=== PATIENT | male | born 1995 | race Two or more races ===

== ENCOUNTER → 2017-09-30 | Emergency (ER) | payer OTHER ==
[~2017-09-30] VITALS: Ht 177.8 cm; Wt 66.2 kg
[~2017-09-30] MED LIST: INTESTINEX680 M1 PO; LEVSIN/SL0.125 MG SL; ZOFRAN ODT4 MG PO
== END | disposition home or self-care (01) ==
LOC: ER 17:26
DX: K52.9 Noninfective gastroenteritis and colitis, unspecified (principal); R10.31 Right lower quadrant pain

== ENCOUNTER 2017-10-12 18:39 | Emergency (ER) | payer OTHER ==
[~2017-10-12] VITALS: Ht 185.4 cm; Wt 88.5 kg
== END 2017-10-12 23:46 | disposition home or self-care (01) ==
LOC: ER 18:39
DX: M94.0 Chondrocostal junction syndrome [Tietze] (principal); F06.4 Anxiety disorder due to known physiological condition

== ENCOUNTER 2017-11-08 16:44 | Emergency (ER) | payer OTHER ==
[~2017-11-08] VITALS: Ht 185.4 cm; Wt 88.5 kg
== END 2017-11-08 18:32 | disposition home or self-care (01) ==
LOC: ER 16:44
DX: R51 Headache (principal); M79.2 Neuralgia and neuritis, unspecified

== ENCOUNTER 2017-12-31 17:14 | Emergency (ER) | payer OTHER ==
[~2017-12-31] VITALS: Ht 185.4 cm; Wt 87.5 kg
== END 2017-12-31 23:27 | disposition home or self-care (01) ==
LOC: ER 17:14
DX: R19.5 Other fecal abnormalities (principal); R10.84 Generalized abdominal pain

== ENCOUNTER 2018-02-04 16:00 | Emergency (ER) | payer OTHER ==
[~2018-02-04] VITALS: Ht 185.4 cm; Wt 86.2 kg
== END 2018-02-04 18:13 | disposition home or self-care (01) ==
LOC: ER 16:00
DX: K29.70 Gastritis, unspecified, without bleeding (principal)

== ENCOUNTER 2018-02-15 21:56 | Inpatient (IN) | payer OTHER ==
[~2018-02-15] VITALS: Ht 185.4 cm; Wt 88.9 kg
[2018-02-21] MEDS ORDERED: OMEPRAZOLE20 M1 PO (08:58)
[2018-02-21] MEDS ORDERED: TRAMADOL HCL50 MG PO (08:58)
[2018-02-22] MEDS ORDERED: OMEPRAZOLE20 MG PO (10:23)
[2018-02-22] MEDS ORDERED: INTESTINEX680 M1 PO (10:23)
[2018-02-22] MEDS ORDERED: METRONIDAZOLE500 MG PO (10:23)
[2018-02-22] MEDS ORDERED: CIPRO500 MG PO (10:23)
[2018-02-22] MEDS ORDERED: ONDANSETRON ODT4 MG PO (10:50)
== END 2018-02-21 13:56 | disposition home or self-care (01) | DRG 417 ==
LOC: ER 21:56 → MEDI 02-16 08:24 → SEC-K 02-16 08:24 → MEDI 02-16 12:54
PROVIDERS: Surgery
PROC: 4A033R1 Measurement of Arterial Saturation, Peripheral, Percutaneous Approach (ICD-10-PCS; 2018-02-16)
PROC: CF1C1ZZ Planar Nuclear Medicine Imaging of Hepatobiliary System, All using Technetium 99m (Tc-99m) (ICD-10-PCS; 2018-02-16)
PROC: 3E0F7GC Introduction of Other Therapeutic Substance into Respiratory Tract, Via Natural or Artificial Opening (ICD-10-PCS; 2018-02-17)
PROC: BF37ZZZ Magnetic Resonance Imaging (MRI) of Pancreas (ICD-10-PCS; 2018-02-17)
PROC: 0FT44ZZ Resection of Gallbladder, Percutaneous Endoscopic Approach (ICD-10-PCS; principal; 2018-02-18 15:15)
PROC: BF37ZZZ Magnetic Resonance Imaging (MRI) of Pancreas (ICD-10-PCS; 2018-02-20)
DX: K81.1 Chronic cholecystitis (principal); K85.80 Other acute pancreatitis without necrosis or infection; K58.0 Irritable bowel syndrome with diarrhea

== ENCOUNTER → 2018-02-21 | Emergency (ER) | payer OTHER ==
[~2018-02-21] VITALS: Ht 185.4 cm; Wt 88.9 kg
[~2018-02-21] MED LIST changes: +CIPRO500 MG PO; +METRONIDAZOLE500 MG PO; +OMEPRAZOLE20 M1 PO; +OMEPRAZOLE20 MG PO; +ONDANSETRON ODT4 MG PO; +TRAMADOL HCL50 MG PO
== END | disposition home or self-care (01) ==
LOC: ER 19:30
DX: K62.89 Other specified diseases of anus and rectum (principal)

== ENCOUNTER → 2018-02-25 | Emergency (ER) | payer OTHER ==
[~2018-02-25] VITALS: Ht 185.4 cm; Wt 86.2 kg
== END | disposition home or self-care (01) ==
LOC: ER 23:10
DX: R10.11 Right upper quadrant pain (principal); R10.31 Right lower quadrant pain

== ENCOUNTER 2018-03-20 05:57 | Emergency (ER) | payer OTHER ==
[~2018-03-20] VITALS: Ht 185.4 cm; Wt 81.2 kg
== END 2018-03-20 10:05 | disposition home or self-care (01) ==
LOC: ER 05:57
DX: K29.70 Gastritis, unspecified, without bleeding (principal)

== ENCOUNTER 2018-04-15 20:44 | Emergency (ER) | payer OTHER ==
[~2018-04-15] VITALS: Ht 154.9 cm; Wt 81.6 kg
== END 2018-04-15 22:33 | disposition home or self-care (01) ==
LOC: ER 20:44
DX: J02.8 Acute pharyngitis due to other specified organisms (principal); R06.09 Other forms of dyspnea; F06.4 Anxiety disorder due to known physiological condition

== ENCOUNTER 2022-04-21 17:15 | Emergency (ER) | payer OTHER ==
[~2022-04-21] VITALS: Ht 185.4 cm; Wt 104.3 kg
== END 2022-04-21 22:42 | disposition home or self-care (01) ==
LOC: ER 17:15
DX: K52.9 Noninfective gastroenteritis and colitis, unspecified (principal); Z20.822 Contact with and (suspected) exposure to COVID-19

== ENCOUNTER 2023-08-21 07:00 | Emergency (ER) | payer OTHER ==
[~2023-08-21] VITALS: Ht 172.7 cm; Wt 86.2 kg
[2023-08-21] MEDS ORDERED: DEXTROSE 5 % AND 0.9 % NACL 1,000 ML IV STA (09:03)
[2023-08-21] MEDS ORDERED: ONDANSETRON HCL 2 MG/ML VIAL IV STA (09:03)
[2023-08-21 09:52] LABS: HEMATOCRIT 47.1 % (39.0-48.0); HEMOGLOBIN 16.3 g/dL (13-16.00); MEAN CELL VOLUME 87.7 fL (80.0-100.00); MEAN CORPUSCULAR HEMOGLOBIN 30.3 pg (27.00-32.0); MEAN CORPUSCULAR HGB CONC 34.6 g/dl (32.0-36.0); PLATELET COUNT 323 K/uL (150-450); RED BLOOD COUNT 5.38 M/uL (4.00-6.00); RED CELL DISTRIBUTION WIDTH 13.3 % (11.5-14.5)
[2023-08-21 10:17] LABS: CALCIUM 8.7 mg/dL (8.5-10.1); CREATININE SERUM 1.16 mg/dL (0.70-1.30); GFR 75.52; POTASSIUM 3.68 mEq/L (3.5-5.1)
[2023-08-21 10:20] LABS: URINE APPEARANCE Clear; URINE BILIRRUBIN Negative (NEGATIVE); URINE BLOOD Negative; URINE COLOR Yellow; URINE GLUCOSE Negative (NEGATIVE); URINE LEUKOCYTE Negative; URINE NITRATE Negative; URINE PROTEIN Negative (NEGATIVE)
[2023-08-21 10:25] LABS: URINE BACTERIA 12.5 uL (0.0-1933); URINE EPITHELIAL CELLS 5.2 uL (0.0-38.8)
[2023-08-21 10:28] LABS: URINE RBC 1.4 uL (0.0-20.8)
[2023-08-21] MEDS ORDERED: LACTOBACILLUS ACIDOPHILUS 1 CAP CAP PO STA (14:58)
[2023-08-21] MEDS ORDERED: CEFTRIAXONE SODIUM 1,000 MG VIAL IV STA (14:58)
== END 2023-08-21 21:43 | disposition home or self-care (01) ==
LOC: ER 07:01
PROVIDERS: Emergency Medicine
DX: K58.9 Irritable bowel syndrome, unspecified (principal); Z20.822 Contact with and (suspected) exposure to COVID-19

== ENCOUNTER 2023-09-05 18:26 | Emergency (ER) | payer OTHER ==
[~2023-09-05] VITALS: Ht 185.4 cm; Wt 99.8 kg
[2023-09-05 19:13] LABS: HEMATOCRIT 47.1 % (39.0-48.0); MEAN CELL VOLUME 89.1 fL (80.0-100.00); MEAN CORPUSCULAR HEMOGLOBIN 30.2 pg (27.00-32.0); MEAN CORPUSCULAR HGB CONC 33.9 g/dl (32.0-36.0); PLATELET COUNT 346 K/uL (150-450); RED BLOOD COUNT 5.29 M/uL (4.00-6.00); RED CELL DISTRIBUTION WIDTH 13.3 % (11.5-14.5)
[2023-09-05 19:44] LABS: ALBUMIN 4.3 gm/dL (3.4-5.0); BILIRUBIN TOTAL 0.35 mg/dL (0.3-1.2); CALCIUM 9.7 mg/dL (8.5-10.1); CREATININE SERUM 1.22 mg/dL (0.70-1.30); GFR 71.25; GLOBULINA 3.4 G/DL (2.4-3.5); POTASSIUM 4.29 mEq/L (3.5-5.1); TOTAL PROTEIN 7.7 gm/dL (6.4-8.2); TSH 1.37 uIU/mL (0.358-3.74)
== END 2023-09-05 21:08 | disposition home or self-care (01) ==
LOC: ER 18:27
PROVIDERS: General Practice
DX: R00.2 Palpitations (principal)

== ENCOUNTER 2023-12-31 13:48 | Emergency (ER) | payer OTHER ==
[~2023-12-31] VITALS: Ht 185.4 cm; Wt 104.3 kg
[2023-12-31] MEDS ORDERED: ONDANSETRON HCL 2 MG/ML VIAL IV ONE (16:45)
[2023-12-31] MEDS ORDERED: FAMOtidine 10 MG/ML (4ML VIAL) IV ONE (16:45)
[2023-12-31] MEDS ORDERED: ONDANSETRON HCL 2 MG/ML VIAL ONE (16:58)
[2023-12-31] MEDS ORDERED: BARIUM SULFATE 450 ML ORAL.SUSP PO ONE (16:58)
[2023-12-31] MEDS ORDERED: FAMOTIDINE/PF 20 MG/2 ML VIAL ONE (16:59)
[2023-12-31] MEDS ORDERED: 0.9 % SODIUM CHLORIDE 1,000 ML IV ONE (17:00)
[2023-12-31 17:27] LABS: HEMATOCRIT 48.1 % (39.0-48.0); HEMOGLOBIN 16.5 g/dL (13-16.00); MEAN CELL VOLUME 87.3 fL (80.0-100.00); MEAN CORPUSCULAR HGB CONC 34.3 g/dl (32.0-36.0); PLATELET COUNT 360 K/uL (150-450); RED BLOOD COUNT 5.51 M/uL (4.00-6.00); RED CELL DISTRIBUTION WIDTH 13.8 % (11.5-14.5)
[2023-12-31 17:50] LABS: PH,URINE 5.5 (5.0-8.0); URINE APPEARANCE Clear; URINE BILIRRUBIN Negative (NEGATIVE); URINE BLOOD Negative; URINE COLOR Yellow; URINE GLUCOSE Negative (NEGATIVE); URINE KETONE Negative (NEGATIVE); URINE LEUKOCYTE Negative; URINE NITRATE Negative; URINE PROTEIN Negative (NEGATIVE); URINE UROBILINOGEN 0.2 E.U./dl
[2023-12-31 17:51] LABS: URINE BACTERIA 8.8 uL (0.0-1933); URINE EPITHELIAL CELLS 3.5 uL (0.0-38.8); URINE RBC 3.8 uL (0.0-20.8); URINE WBC 10.1 uL (0.0-23.2)
[2023-12-31 17:51] LABS: ALBUMIN 4.6 gm/dL (3.4-5.0); BILIRUBIN TOTAL 0.88 mg/dL (0.3-1.2); CALCIUM 9.7 mg/dL (8.5-10.1); CREATININE SERUM 1.16 mg/dL (0.70-1.30); GFR 74.97; GLOBULINA 3.8 G/DL (2.4-3.5); POTASSIUM 4.14 mEq/L (3.5-5.1); TOTAL PROTEIN 8.4 gm/dL (6.4-8.2)
== END 2023-12-31 22:05 | disposition home or self-care (01) ==
LOC: ER 13:49
PROVIDERS: General Practice
DX: R10.2 Pelvic and perineal pain (principal); K40.20 Bilateral inguinal hernia, without obstruction or gangrene, not specified as recurrent; Z88.8 Allergy status to other drugs, medicaments and biological substances

== ENCOUNTER 2024-10-13 16:35 | Emergency (ER) | payer OTHER ==
[~2024-10-13] VITALS: Ht 185.4 cm; Wt 99.8 kg
[2024-10-13] MEDS ORDERED: FAMOTIDINE/PF 20 MG in 0.9 % SODIUM CHLORIDE 8 ML IV PUSH STA (17:15)
[2024-10-13] MEDS ORDERED: FAMOTIDINE/PF 20 MG/2 ML VIAL ONE (17:17)
[2024-10-13 17:35] LABS: BASO % 0.7 % (0.1-1.2); EOS # 0.17 (0.04-0.54); EOS % 2.3 % (0.7-7.0); HEMATOCRIT 47.9 % (40.1-51.0); HEMOGLOBIN 16.5 g/dL (13.7-17.5); LYMPH # 2.41 (1.18-3.74); LYMPH % 32.2 % (19.3-53.1); MEAN CORPUSCULAR HEMOGLOBIN 29.8 pg (25.6-32.2); MONO # 0.69 (0.24-0.82); MONO % 9.2 % (4.7-12.5); NEUT # 4.11 (1.56-6.13); NEUT % 54.8 % (34.0-71.1); PLATELET COUNT 346 K/uL (163-369); RED BLOOD COUNT 5.54 M/uL (4.63-6.08)
[2024-10-13 18:06] LABS: ALBUMIN 4.2 gm/dL (3.4-5.0); BILIRUBIN TOTAL 0.82 mg/dL (0.3-1.2); CREATININE SERUM 0.98 mg/dL (0.70-1.30); GFR 91.07; GLOBULINA 3.8 G/DL (2.4-3.5); POTASSIUM 4.69 mEq/L (3.5-5.1)
[2024-10-13 18:07] LABS: BILIRUBIN,CONJUGATED 0.12 mg/dL (0.0-0.2); BILIRUBIN,UNCONJUGATED 0.7 mg/dL (0.0-0.6)
[2024-10-13] MEDS ORDERED: PEPCID AC20 MG PO (20:04)
[2024-10-13] MEDS ORDERED: LEVSIN/SL0.125 MG SL (20:04)
== END 2024-10-13 20:12 | disposition home or self-care (01) ==
LOC: ER 16:35
PROVIDERS: General Practice
DX: R10.9 Unspecified abdominal pain (principal); Z91.041 Radiographic dye allergy status

== ENCOUNTER 2025-02-18 03:11 | Emergency (ER) | payer OTHER ==
[~2025-02-18] VITALS: Ht 185.4 cm; Wt 104.3 kg
[~2025-02-18 03:11] MED LIST changes: +PEPCID AC20 MG PO
[2025-02-18 05:43] LABS: ALT/SGPT 36.0 U/L (12-78); AST/SGOT 16.0 U/L (15-37); BILIRUBIN TOTAL 0.35 mg/dL (0.3-1.2); BUN CREA RATIO 12.0 (7.0-25.0); CREATININE SERUM 1.05 mg/dL (0.70-1.30); GFR 83.51; GLOBULINA 3.6 G/DL (2.4-3.5); GLUCOSE FASTING 105.0 mg/dL (65-100); OSMOLALITY SERUM 284.0 MOSM/KG (275-295)
[2025-02-18] MEDS ORDERED: ORPHENADRINE CITRATE 30 MG/ML AMPUL IM STA (05:47)
[2025-02-18] MEDS ORDERED: KETOROLAC TROMETHAMINE 60 MG VIAL IM STA (05:47)
[2025-02-18 05:55] LABS: BASO % 0.4 % (0.1-1.2); EOS # 0.16 (0.04-0.54); EOS % 1.8 % (0.7-7.0); LYMPH # 2.40 (1.18-3.74); LYMPH % 26.7 % (19.3-53.1); MEAN PLATELET VOLUME 9.40 fl (9.4-12.4); MONO # 0.92 (0.24-0.82); MONO % 10.2 % (4.7-12.5); NEUT # 5.39 (1.56-6.13); NEUT % 60.0 % (34.0-71.1); RED CELL DISTRIBUTION WIDTH 12.1 % (11.6-14.4)
[2025-02-18] MEDS ORDERED: ORPHENADRINE CITRATE 30 MG/ML AMPUL ONE (06:25)
[2025-02-18] MEDS ORDERED: KETOROLAC TROMETHAMINE 60 MG VIAL IM ONE (06:25)
[2025-02-18 08:03] LABS: URINE APPEARANCE Clear; URINE BILIRRUBIN Negative (NEGATIVE); URINE BLOOD Negative; URINE COLOR Yellow; URINE GLUCOSE Negative (NEGATIVE); URINE KETONE Negative (NEGATIVE); URINE LEUKOCYTE Negative; URINE NITRATE Negative; URINE PROTEIN Negative (NEGATIVE); URINE UROBILINOGEN 0.2 E.U./dl
[2025-02-18 09:11] LABS: URINE BACTERIA 0 uL (0.0-1933); URINE CAST 0.00 uL (0.0-1.40); URINE EPITHELIAL CELLS 0.7 uL (0.0-38.8); URINE RBC 0.8 uL (0.0-20.8); URINE WBC 1.3 uL (0.0-23.2)
== END 2025-02-18 06:54 | disposition home or self-care (01) ==
LOC: ER 03:11
PROVIDERS: Physician Assistant Medical
DX: M62.838 Other muscle spasm (principal); F41.9 Anxiety disorder, unspecified; M75.51 Bursitis of right shoulder; Z88.8 Allergy status to other drugs, medicaments and biological substances